=== PATIENT | male | born 1940 | race Caucasian/White ===

== ENCOUNTER 2022-06-14 00:52 | Inpatient (IN) | payer MEDICARE ==
[2022-06-14] VITALS (32 sets, daily range): BP systolic 99–139; BP diastolic 40–86
[~2022-06-14] VITALS: Ht 177.8 cm; Wt 74.2 kg
[~2022-06-14 00:52] MED LIST: ALPR0.25 PO; AMLO5TAB4 PO; ASPI-1197 PO; CLOP75TA14 PO; GLIM2TAB30 PO; LEVO750T21 PO; LISI40TA9 PO; METO100T14 PO; Metformin Hcl PO; SIMV40TA59 PO
[2022-06-14] MEDS ORDERED: NITROGLYCERIN 1GM OINT 1 INCH/1GM TD ONE ×2 (01:10→01:30)
[2022-06-14] MEDS ORDERED: FUROSEMIDE 40MG VIAL ONE (01:10)
[2022-06-14] MEDS ORDERED: ACETAMINOPHEN 650 MG SUPPOSITORY RC ONE ×2 (01:22→01:30)
[2022-06-14 01:24] LABS: ABG BASE EXCESS -3.9 mmol/L (-2.0-3.0); ABG OXYGEN SATURATION 94.6 % (95.0-99.0); ABG PCO2 55 mmHg (35-48)
[2022-06-14 01:29] LABS: BASOPHILS % (AUTO) 0.3 % (0.0-5.0); EOSINOPHILS % (AUTO) 0.8 % (0.0-8.0); HEMATOCRIT 43.1 % (42-54); LYMPHOCYTES % (AUTO) 26.5 % (21.0-51.0); MEAN CORPUSCULAR HEMOGLOBIN 31.9 pg (27.0-33.0); MEAN CORPUSCULAR HGB CONC 32.3 g/dL (32.0-36.0); MEAN CORPUSCULAR VOLUME 98.9 fL (79-99); MONOCYTES % (AUTO) 3.6 % (3.0-13.0); NEUTROPHILS % (AUTO) 68.5 % (40.0-77.0); PLATELET COUNT (AUTO) 242 K/uL (130-400); RED BLOOD CELL COUNT(AUTO) 4.36 MIL/uL (4.50-6.20); RED CELL DISTRIBUTION WIDTH 13.2 % (11.0-15.5); WHITE BLOOD COUNT (AUTO) 21.4 K/uL (4.8-10.8)
[2022-06-14] MEDS ORDERED: FUROSEMIDE 40MG VIAL IV ONE (01:30)
[2022-06-14 01:38] LABS: APPEARANCE,URINE CLEAR (CLEAR); BILIRUBIN,URINE NEGATIVE (NEGATIVE); COLOR,URINE YELLOW (YELLOW); GLUCOSE, URINE (UA) NEGATIVE (NEGATIVE); KETONES,URINE NEGATIVE (NEGATIVE); LEUKOCYTE ESTERASE ,URINE NEGATIVE (NEGATIVE); NITRATE,URINE NEGATIVE (NEGATIVE); PH,URINE 5.5 (5.0-8.0); PROTEIN,URINE 30 mg/dL (NEGATIVE); UROBILINOGEN,URINE 0.2 mg/dL (0.2-1.0)
[2022-06-14] MEDS ORDERED: ZOSYN 3.375GM+NS 50ML 50 ML ONE (01:38)
[2022-06-14 01:39] LABS: OCCULT BLOOD,URINE NEGATIVE (NEGATIVE)
[2022-06-14 01:42] LABS: CREATININE 1.5 mg/dL (0.5-1.5); POTASSIUM 4.1 mmol/L (3.5-5.1)
[2022-06-14] MEDS ORDERED: ONDANSETRON 4MG INJ ONE (01:48)
[2022-06-14 01:50] LABS: ALBUMIN 3.8 g/dL (3.5-5.0); TOTAL PROTEIN, SERUM 8.2 g/dL (6.0-8.3)
[2022-06-14 01:54] LABS: MAGNESIUM 2.8 mg/dL (1.80-2.40)
[2022-06-14] MEDS: ZOSYN 3.375GM +NS 50ML IV SCH ×2 (02:00→02:27)
[2022-06-14] MEDS ORDERED: DEXAMETHASONE SOD PHOSPHATE 4 MG/ML 1ML VIAL IV SCH (03:30)
[2022-06-14] MEDS ORDERED: ACETAMINOPHEN 650 MG SUPPOSITORY RC PRN (04:00)
[2022-06-14] MEDS: 0.9%NACL 1000ML 1,000 ML IV SCH ×2 (04:00→20:01)
[2022-06-14] MEDS ORDERED: ONDANSETRON 4MG INJ IV PRN (04:00)
[2022-06-14] MEDS ORDERED: NITROGLYCERIN 1GM OINT 1 INCH/1GM TD PRN (04:00)
[2022-06-14] MEDS ORDERED: MORPHINE 2 MG SYG IV PRN (04:00)
[2022-06-14] MEDS ORDERED: GUAIFENESIN-CODEINE 5 ML SYRUP PO PRN (04:00)
[2022-06-14] MEDS ORDERED: LORAZEPAM 2 MG/ML 1 ML VIAL IVP PRN (04:00)
[2022-06-14] MEDS ORDERED: HYDROMORPHONE 1 MG INJ IV PRN (04:00)
[2022-06-14] MEDS ORDERED: DEXTROSE 50%-WATER 50 ML DISP.SYRIN IV PRN (04:30)
[2022-06-14] MEDS ORDERED: GLUCAGON 1MG KIT 1 MG ML IM PRN (04:30)
[2022-06-14] MEDS: ZOSYN 3.375GM+NS 50ML 50 ML IV SCH ×3 (05:00→21:09)
[2022-06-14 05:27] LABS: HEMOGLOBIN A1C 8.6 % (4.0-6.0)
[2022-06-14] MEDS ORDERED: SODIUM CHLORIDE 7% INHALATION 4 ML VIAL.NEB IH ONE (06:26)
[2022-06-14] MEDS: IPRATROPIUM/ALBUTEROL SULFATE 3 ML SOLUTION IH SCH ×3 (06:32→18:00)
[2022-06-14] MEDS ORDERED: HYDRALAZINE 20MG/ML VIAL IV PRN (07:00)
[2022-06-14] MEDS ORDERED: KCL 20 MEQ ERTAB PO PRN (07:00)
[2022-06-14] MEDS ORDERED: ONDANSETRON 4MG INJ IVP PRN (07:00)
[2022-06-14] MEDS ORDERED: CLONIDINE HCL 0.1 MG TABLET PO PRN (07:00)
[2022-06-14] MEDS ORDERED: TEMAZEPAM 15 MG CAPSULE PO PRN (07:00)
[2022-06-14] MEDS ORDERED: MAGNESIUM 2GM PREMIX 50ML 50 ML IV PRN (07:00)
[2022-06-14] MEDS ORDERED: DOCUSATE SODIUM 100 MG CAP PO PRN (07:00)
[2022-06-14] MEDS ORDERED: POTASSIUM CHLORIDE 10MEQ/100ML 100 ML IV PRN (07:00)
[2022-06-14] MEDS ORDERED: LACTULOSE 20 GM/30 ML UDCUP PO PRN (07:00)
[2022-06-14] MEDS: HEPARIN 5,000 UNIT VIAL SQ SCH ×3 (09:43→21:10)
[2022-06-14] MEDS: DOXYCYCLINE 100MG+NS 250ML IV SCH ×2 (09:43→20:11)
[2022-06-14] MEDS: FAMOTIDINE 20MG VIAL IV SCH (09:43)
[2022-06-14] MEDS: ALBUTEROL 0.042% 1.25MG/3ML IH SCH ×2 (18:25→23:25)
[2022-06-14] MEDS: ACETYLCYSTEINE 10% 100MG/ML 4ML VIAL IH SCH ×2 (18:25→23:25)
[2022-06-14] MEDS: FUROSEMIDE 40MG VIAL IV SCH (20:11)
[2022-06-15] VITALS (35 sets, daily range): BP systolic 102–167; BP diastolic 34–79
[2022-06-15 04:03] LABS: BASOPHILS % (AUTO) 0.3 % (0.0-5.0); HEMATOCRIT 33.4 % (42-54); LYMPHOCYTES % (AUTO) 8.2 % (21.0-51.0); MEAN CORPUSCULAR HEMOGLOBIN 32.6 pg (27.0-33.0); MEAN CORPUSCULAR HGB CONC 33.2 g/dL (32.0-36.0); MEAN CORPUSCULAR VOLUME 97.9 fL (79-99); MONOCYTES % (AUTO) 4.8 % (3.0-13.0); PLATELET COUNT (AUTO) 179 K/uL (130-400); RED BLOOD CELL COUNT(AUTO) 3.41 MIL/uL (4.50-6.20); RED CELL DISTRIBUTION WIDTH 13.4 % (11.0-15.5); WHITE BLOOD COUNT (AUTO) 20.7 K/uL (4.8-10.8)
[2022-06-15] MEDS: ZOSYN 3.375GM+NS 50ML 50 ML IV SCH ×3 (04:15→22:36)
[2022-06-15 04:35] LABS: CREATININE 1.7 mg/dL (0.5-1.5); MAGNESIUM 2.8 mg/dL (1.80-2.40); PHOSPHORUS 2.9 mg/dL (2.5-4.9); POTASSIUM 3.7 mmol/L (3.5-5.1); TOTAL PROTEIN, SERUM 6.8 g/dL (6.0-8.3)
[2022-06-15] MEDS: INSULIN HUMULIN R 100 UNIT/ML 3ML SQ SCH ×3 (06:00→17:27)
[2022-06-15] MEDS: ALBUTEROL 0.042% 1.25MG/3ML IH SCH ×3 (06:32→18:00)
[2022-06-15] MEDS: ACETYLCYSTEINE 10% 100MG/ML 4ML VIAL IH SCH ×4 (06:32→23:22)
[2022-06-15 07:29] LABS: ABG BASE EXCESS 0.1 mmol/L (-2.0-3.0); ABG HCO3 25.7 mmol/L (21.0-28.0); ABG OXYGEN SATURATION 95.9 % (95.0-99.0); ABG PCO2 45 mmHg (35-48)
[2022-06-15] MEDS: FUROSEMIDE 40MG VIAL IV SCH (08:31)
[2022-06-15] MEDS: FAMOTIDINE 20MG VIAL IV SCH (08:31)
[2022-06-15] MEDS: HEPARIN 5,000 UNIT VIAL SQ SCH ×3 (08:31→20:42)
[2022-06-15] MEDS: DOXYCYCLINE 100MG+NS 250ML IV SCH ×2 (08:31→20:41)
[2022-06-15] MEDS ORDERED: INSU300I SQ (09:56)
[2022-06-15] MEDS ORDERED: TEMA15CA PO (09:56)
[2022-06-15] MEDS ORDERED: HYDR25TA PO (09:56)
[2022-06-15] MEDS ORDERED: ATOR20TA65 PO (09:56)
[2022-06-15] MEDS ORDERED: SERT-439 PO (09:56)
[2022-06-15] MEDS ORDERED: AMLO-257 PO (09:56)
[2022-06-15] MEDS: IPRATROPIUM/ALBUTEROL SULFATE 3 ML SOLUTION IH SCH ×3 (18:24→23:22)
[2022-06-15] MEDS: ZOSYN 3.375GM +NS 50ML IV SCH (19:34)
[2022-06-15] MEDS ORDERED: 0.9%NACL 50ML 50 ML IV ONE (20:38)
[2022-06-15] MEDS ORDERED: 0.9% NACL 250ML 250 ML ONE ×2 (20:39→23:35)
[2022-06-15] MEDS ORDERED: VANCOMYCIN PROTOCOL PER PHARMACY IV SCH (23:30)
[2022-06-15] MEDS ORDERED: VANCOMYCIN KIT 1 GM/250 ML IV.KIT IV ONE (23:45)
[2022-06-15] MEDS: MEROPENEM 1 GM VIAL IVP SCH (23:53)
[2022-06-16] VITALS (7 sets, daily range): BP systolic 132–172; BP diastolic 66–99
[2022-06-16 03:38] LABS: BASOPHILS % (AUTO) 0.2 % (0.0-5.0); EOSINOPHILS % (AUTO) 0.4 % (0.0-8.0); HEMATOCRIT 31.4 % (42-54); LYMPHOCYTES % (AUTO) 6.3 % (21.0-51.0); MEAN CORPUSCULAR HEMOGLOBIN 32.5 pg (27.0-33.0); MEAN CORPUSCULAR HGB CONC 33.4 g/dL (32.0-36.0); MEAN CORPUSCULAR VOLUME 97.2 fL (79-99); MONOCYTES % (AUTO) 4.4 % (3.0-13.0); NEUTROPHILS % (AUTO) 86.9 % (40.0-77.0); PLATELET COUNT (AUTO) 168 K/uL (130-400); RED BLOOD CELL COUNT(AUTO) 3.23 MIL/uL (4.50-6.20); RED CELL DISTRIBUTION WIDTH 13.4 % (11.0-15.5); WHITE BLOOD COUNT (AUTO) 18.7 K/uL (4.8-10.8)
[2022-06-16 03:52] LABS: ALBUMIN 2.6 g/dL (3.5-5.0); CREATININE 1.2 mg/dL (0.5-1.5); MAGNESIUM 2.4 mg/dL (1.80-2.40); PHOSPHORUS 1.9 mg/dL (2.5-4.9); POTASSIUM 3.4 mmol/L (3.5-5.1); TOTAL PROTEIN, SERUM 6.6 g/dL (6.0-8.3)
[2022-06-16] MEDS ORDERED: FUROSEMIDE 20MG VIAL IV SCH (04:45)
[2022-06-16] MEDS ORDERED: ALPRAZOLAM 0.25 MG TABLET PEG PRN (05:00)
[2022-06-16] MEDS: POTASSIUM CHLORIDE 10% ELIXIR 20 MEQ/15 ML UDCUP PO PRN ×3 (05:02→16:02)
[2022-06-16] MEDS: INSULIN HUMULIN R 100 UNIT/ML 3ML SQ SCH ×4 (06:00→18:39)
[2022-06-16] MEDS: ALBUTEROL 0.042% 1.25MG/3ML IH SCH ×3 (07:08→18:50)
[2022-06-16] MEDS: ACETYLCYSTEINE 10% 100MG/ML 4ML VIAL IH SCH ×2 (07:08→11:40)
[2022-06-16] MEDS ORDERED: VANCOMYCIN 1.25 GM/250 ML BAG 250 ML IV SCH (09:00)
[2022-06-16] MEDS: FAMOTIDINE 20MG VIAL IV SCH (09:17)
[2022-06-16] MEDS: HEPARIN 5,000 UNIT VIAL SQ SCH ×3 (09:18→21:38)
[2022-06-16] MEDS: MEROPENEM 1 GM VIAL IVP SCH (12:05)
[2022-06-16] MEDS ORDERED: METOPROLOL TARTRATE 1 MG/ML 5ML VIAL IV PRN (16:30)
[2022-06-16] MEDS ORDERED: POTASSIUM PHOS 15 mMOL+NS250ML 250 ML IV PRN (16:30)
[2022-06-16] MEDS: FUROSEMIDE 20MG VIAL IV SCH (17:01)
[2022-06-16] MEDS: SOLU-MEDROL 40MG VIAL IVP SCH (17:01)
[2022-06-16] MEDS: GUAIFENESIN 600 MG TABLET.ER PO SCH (21:39)
[2022-06-16] MEDS: METOPROLOL TARTRATE 50 MG TAB PO SCH (21:39)
[2022-06-17] MEDS ORDERED: 0.9%NACL 10ML VIAL ONE (00:24)
[2022-06-17] MEDS: INSULIN HUMULIN R 100 UNIT/ML 3ML SQ SCH ×4 (00:27→19:48)
[2022-06-17] MEDS: MEROPENEM 1 GM VIAL IVP SCH ×2 (00:28→11:47)
[2022-06-17] MEDS: SOLU-MEDROL 40MG VIAL IVP SCH ×3 (00:28→16:47)
[2022-06-17] MEDS: ALBUTEROL 0.042% 1.25MG/3ML IH SCH ×4 (00:38→18:56)
[2022-06-17 04:52] LABS: BASOPHILS % (AUTO) 0.2 % (0.0-5.0); HEMATOCRIT 32.6 % (42-54); LYMPHOCYTES % (AUTO) 4.9 % (21.0-51.0); MEAN CORPUSCULAR HEMOGLOBIN 31.7 pg (27.0-33.0); MEAN CORPUSCULAR HGB CONC 32.2 g/dL (32.0-36.0); MEAN CORPUSCULAR VOLUME 98.5 fL (79-99); MONOCYTES % (AUTO) 2.8 % (3.0-13.0); NEUTROPHILS % (AUTO) 91.2 % (40.0-77.0); PLATELET COUNT (AUTO) 176 K/uL (130-400); RED BLOOD CELL COUNT(AUTO) 3.31 MIL/uL (4.50-6.20); RED CELL DISTRIBUTION WIDTH 13.7 % (11.0-15.5); WHITE BLOOD COUNT (AUTO) 16.2 K/uL (4.8-10.8)
[2022-06-17] MEDS: FUROSEMIDE 20MG VIAL IV SCH ×2 (04:59→16:55)
[2022-06-17 05:19] LABS: ALBUMIN 2.6 g/dL (3.5-5.0); CREATININE 1.2 mg/dL (0.5-1.5); MAGNESIUM 2.6 mg/dL (1.80-2.40); PHOSPHORUS 2.1 mg/dL (2.5-4.9); POTASSIUM 4.3 mmol/L (3.5-5.1); TOTAL PROTEIN, SERUM 7.1 g/dL (6.0-8.3)
[2022-06-17 07:00] VITALS: BP 137/52
[2022-06-17] MEDS: METOPROLOL TARTRATE 50 MG TAB PO SCH (08:31)
[2022-06-17] MEDS: FAMOTIDINE 20MG VIAL IV SCH (08:31)
[2022-06-17] MEDS: GUAIFENESIN 600 MG TABLET.ER PO SCH (08:31)
[2022-06-17] MEDS: HEPARIN 5,000 UNIT VIAL SQ SCH ×2 (08:32→14:02)
[2022-06-17 11:00] VITALS: BP 158/71
[2022-06-17 16:00] VITALS: BP 151/84
[2022-06-17] MEDS ORDERED: INSULIN HUMULIN R 100 UNIT/ML 3ML SQ ONE (20:00)
[2022-06-17 20:47] VITALS: BP 156/88
[2022-06-18 05:00] VITALS: BP 150/22
== END 2022-06-17 20:45 | DRG 871 ==
LOC: EDH 00:52 → EDHIP 03:15 → 2CH 06:24 → 2AH 06-15 18:19 → 2DH 06-16 11:04
PROVIDERS: ADMIT Hospitalist; ATTEND Hospitalist
PROC: 5A09357 Assistance with Respiratory Ventilation, Less than 24 Consecutive Hours, Continuous Positive Airway Pressure (ICD-10-PCS; principal; 2022-06-14)
PROC: 5A09357 Assistance with Respiratory Ventilation, Less than 24 Consecutive Hours, Continuous Positive Airway Pressure (ICD-10-PCS; 2022-06-15)
DX: A41.9 Sepsis, unspecified organism (principal); J69.0 Pneumonitis due to inhalation of food and vomit; J96.01 Acute respiratory failure with hypoxia; R65.21 Severe sepsis with septic shock; E87.2 Acidosis; E46 Unspecified protein-calorie malnutrition; Z20.822 Contact with and (suspected) exposure to COVID-19; E11.65 Type 2 diabetes mellitus with hyperglycemia; I16.0 Hypertensive urgency; I25.10 Atherosclerotic heart disease of native coronary artery without angina pectoris; I50.9 Heart failure, unspecified; I11.0 Hypertensive heart disease with heart failure; Z66 Do not resuscitate; E78.00 Pure hypercholesterolemia, unspecified; Z95.1 Presence of aortocoronary bypass graft; Z91.19 Patient's noncompliance with other medical treatment and regimen; Z86.73 Personal history of transient ischemic attack (TIA), and cerebral infarction without residual deficits; Z86.12 Personal history of poliomyelitis; Z85.51 Personal history of malignant neoplasm of bladder; Z83.3 Family history of diabetes mellitus; Z82.49 Family history of ischemic heart disease and other diseases of the circulatory system; Z82.3 Family history of stroke; Z80.52 Family history of malignant neoplasm of bladder; Z68.23 Body mass index [BMI] 23.0-23.9, adult
CPT/HCPCS: 36415; 36600; 71045; 71250; 74021; 74176; 80053; 81003; 82010; 82550; 82803; 82948; 83036; 83605; 83735; 83880; 84100; 84145; 84484; 85025; 85378; 87040; 87071; 87077; 87186; 87205; 87635; 87804; 93005; 93970; 94640; 94660; 94664; 94667; 94668; 97039; 99291; C9803; G0378; J1100; J1644; J1815; J1940; J2185; J2405; J2543; J2920; J3370; J3490; J7030; J7050; J7608

== ENCOUNTER 2022-07-08 16:38 | Inpatient (IN) | payer MEDICARE ==
[~2022-07-08] VITALS: Ht 180.3 cm; Wt 70.4 kg
[~2022-07-08 16:38] MED LIST changes: -ALPR0.25 PO; +AMLO-257 PO; -AMLO5TAB4 PO; -ASPI-1197 PO; +ATOR20TA65 PEG; +CLOP75TA14 PEG; -CLOP75TA14 PO; +HYDR25TA PO; +INSU300I SQ; -LEVO750T21 PO; -Metformin Hcl PO; +SERT-439 PO; -SIMV40TA59 PO
[2022-07-08 20:00] VITALS: BP 123/53
[2022-07-08] MEDS ORDERED: LACTULOSE 20 GM/30 ML UDCUP PO PRN (21:00)
[2022-07-08] MEDS ORDERED: ONDANSETRON 4MG INJ IV PRN (21:00)
[2022-07-08] MEDS ORDERED: ACETAMINOPHEN 325 MG TAB PO PRN ×2 (21:00)
[2022-07-08] MEDS ORDERED: DEXTROSE 50%-WATER 50 ML DISP.SYRIN IV PRN (21:00)
[2022-07-08] MEDS ORDERED: GLUCAGON 1MG KIT 1 MG ML IM PRN (21:00)
[2022-07-08 21:08] LABS: BASOPHILS % (AUTO) 0.2 % (0.0-5.0); EOSINOPHILS % (AUTO) 0.3 % (0.0-8.0); HEMATOCRIT 25.1 % (42-54); LYMPHOCYTES % (AUTO) 9.9 % (21.0-51.0); MEAN CORPUSCULAR HGB CONC 33.5 g/dL (32.0-36.0); MEAN CORPUSCULAR VOLUME 92.6 fL (79-99); MONOCYTES % (AUTO) 5.8 % (3.0-13.0); NEUTROPHILS % (AUTO) 83.4 % (40.0-77.0); PLATELET COUNT (AUTO) 210 K/uL (130-400); RED BLOOD CELL COUNT(AUTO) 2.71 MIL/uL (4.50-6.20); RED CELL DISTRIBUTION WIDTH 14.3 % (11.0-15.5); WHITE BLOOD COUNT (AUTO) 14.6 K/uL (4.8-10.8)
[2022-07-08 21:20] LABS: INR 1.04 (0.85-1.15); PROTHROMBIN TIME 11.3 SEC (9.6-11.6)
[2022-07-08 21:22] LABS: ALBUMIN 1.7 g/dL (3.5-5.0); CREATININE 0.9 mg/dL (0.5-1.5); PARTIAL THROMBOPLASTIN TIME 27.1 SEC (26.3-35.5); POTASSIUM 4.3 mmol/L (3.5-5.1); TOTAL PROTEIN, SERUM 5.8 g/dL (6.0-8.3)
[2022-07-09] VITALS (10 sets, daily range): BP systolic 71–131; BP diastolic 38–67
[2022-07-09] MEDS ORDERED: PANT40VI IV (00:20)
[2022-07-09] MEDS ORDERED: INSU100C6 SQ (00:20)
[2022-07-09] MEDS ORDERED: INSLAN SQ (00:20)
[2022-07-09] MEDS ORDERED: IPRA0.2S54 IH (00:22)
[2022-07-09] MEDS ORDERED: ALBU2.5V2 IH (00:24)
[2022-07-09] MEDS: IPRATROPIUM/ALBUTEROL SULFATE 3 ML SOLUTION IH PRN ×4 (00:51→22:01)
[2022-07-09] MEDS ORDERED: GUAI5LIQ13 PO (01:48)
[2022-07-09] MEDS ORDERED: DOCUSATE SODIUM PEG (01:48)
[2022-07-09] MEDS ORDERED: LACT10SO9 PO (01:48)
[2022-07-09] MEDS ORDERED: ALPR0.255 PO (01:48)
[2022-07-09] MEDS ORDERED: CLON0.1T PEG (01:48)
[2022-07-09] MEDS ORDERED: METO50TA18 PEG (01:50)
[2022-07-09] MEDS ORDERED: SERT-439 PEG (01:53)
[2022-07-09] MEDS ORDERED: 0.9% NACL 250ML 250 ML ONE (01:54)
[2022-07-09] MEDS ORDERED: CEFTRIAXONE 1G VIAL IVP SCH (02:00)
[2022-07-09] MEDS ORDERED: AZITHROMYCIN 500MG+NS 250ML IVPB SCH (02:00)
[2022-07-09] MEDS ORDERED: GUAI-899 PO (02:26)
[2022-07-09] MEDS ORDERED: ALPRAZOLAM 0.25 MG TABLET PO PRN (03:00)
[2022-07-09] MEDS ORDERED: CLONIDINE HCL 0.1 MG TABLET PEG PRN (03:00)
[2022-07-09] MEDS: INSULIN HUMULIN R 100 UNIT/ML 3ML SQ SCH ×4 (05:56→18:00)
[2022-07-09 08:01] LABS: HEMATOCRIT 25.4 % (42-54); MEAN CORPUSCULAR HEMOGLOBIN 31.3 pg (27.0-33.0); MEAN CORPUSCULAR HGB CONC 33.1 g/dL (32.0-36.0); MEAN CORPUSCULAR VOLUME 94.8 fL (79-99); RED BLOOD CELL COUNT(AUTO) 2.68 MIL/uL (4.50-6.20); RED CELL DISTRIBUTION WIDTH 14.4 % (11.0-15.5); WHITE BLOOD COUNT (AUTO) 13.5 K/uL (4.8-10.8)
[2022-07-09 08:06] LABS: POTASSIUM 4.8 mmol/L (3.5-5.1)
[2022-07-09] MEDS ORDERED: PANTOPRAZOLE 40 MG/VIAL IVP SCH ×2 (09:00)
[2022-07-09] MEDS: SERTRALINE HCL 50 MG TABLET PEG SCH (09:35)
[2022-07-09] MEDS: HYDROCHLOROTHIAZIDE 25 MG TABLET PO SCH (09:35)
[2022-07-09] MEDS: METOPROLOL TARTRATE 50 MG TAB PEG SCH ×2 (09:35→21:00)
[2022-07-09] MEDS: AMLODIPINE 5 MG TAB PO SCH (09:35)
[2022-07-09 14:09] LABS: HEMATOCRIT 24.1 % (42-54)
[2022-07-09] MEDS: MEROPENEM 1 GM VIAL IVP SCH (14:26)
[2022-07-09] MEDS ORDERED: PEG 3350/NA SULF,BICARB,CL/KCL 4000 ML SOLN PO SCH (15:30)
[2022-07-09 15:55] LABS: HEMATOCRIT 22.4 % (42-54)
[2022-07-09] MEDS ORDERED: OCTREOTIDE ACETATE 1,250 MCG in 0.9% NACL 250ML 250 ML IV SCH (19:30)
[2022-07-09] MEDS ORDERED: SODIUM CHLORIDE FOR INHALATION 3 ML VIAL.NEB. IH SCH (20:30)
[2022-07-09] MEDS: PANTOPRAZOLE 40MG INJ 80 MG in 0.9%NACL 100ML 100 ML IVP SCH (21:06)
[2022-07-09] MEDS ORDERED: 0.9% NACL 250ML IV SCH (22:00)
[2022-07-09] MEDS: ATORVASTATIN 20 MG TABLET PEG SCH (22:21)
[2022-07-09 23:14] LABS: HEMATOCRIT 25.6 % (42-54)
[2022-07-09] MEDS: IPRATROPIUM/ALBUTEROL SULFATE 3 ML SOLUTION IH SCH (23:16)
[2022-07-10] VITALS (24 sets, daily range): BP systolic 85–128; BP diastolic 41–63
[2022-07-10] MEDS ORDERED: IPRATROPIUM 0.5 MG/2.5 ML INH IH SCH
[2022-07-10] MEDS ORDERED: 0.9%NACL 10ML VIAL ONE (02:56)
[2022-07-10] MEDS: MEROPENEM 1 GM VIAL IVP SCH ×2 (02:57→15:00)
[2022-07-10 03:43] LABS: HEMATOCRIT 24.7 % (42-54); MEAN CORPUSCULAR HEMOGLOBIN 31.2 pg (27.0-33.0); MEAN CORPUSCULAR VOLUME 91.8 fL (79-99); RED BLOOD CELL COUNT(AUTO) 2.69 MIL/uL (4.50-6.20); RED CELL DISTRIBUTION WIDTH 14.6 % (11.0-15.5); WHITE BLOOD COUNT (AUTO) 16.2 K/uL (4.8-10.8)
[2022-07-10 03:53] LABS: CREATININE 1.8 mg/dL (0.5-1.5); POTASSIUM 4.5 mmol/L (3.5-5.1)
[2022-07-10] MEDS: INSULIN HUMULIN R 100 UNIT/ML 3ML SQ SCH ×5 (06:00→23:52)
[2022-07-10] MEDS: IPRATROPIUM/ALBUTEROL SULFATE 3 ML SOLUTION IH SCH ×3 (06:45→23:57)
[2022-07-10] MEDS: PANTOPRAZOLE 40MG INJ 80 MG in 0.9%NACL 100ML 100 ML IVP SCH ×2 (06:51→22:52)
[2022-07-10] MEDS: HYDROCHLOROTHIAZIDE 25 MG TABLET PO SCH (08:37)
[2022-07-10] MEDS: METOPROLOL TARTRATE 50 MG TAB PEG SCH ×2 (08:37→20:41)
[2022-07-10] MEDS: SERTRALINE HCL 50 MG TABLET PEG SCH (08:37)
[2022-07-10] MEDS: AMLODIPINE 5 MG TAB PO SCH (08:38)
[2022-07-10 09:17] LABS: HEMATOCRIT 26.5 % (42-54)
[2022-07-10] MEDS ORDERED: PROPOFOL 10 MG/ML 20ML VIAL IV ONE (11:16)
[2022-07-10] MEDS ORDERED: LIDOCAINE HCL 1% 20 ML VIAL ONE (11:17)
[2022-07-10] MEDS ORDERED: GLYCOPYRROLATE 0.2 MG/ML 5 ML VIAL ONE (11:19)
[2022-07-10] MEDS ORDERED: KETAMINE HCL 100 MG/ML 5ML VIAL IJ ONE (11:20)
[2022-07-10 13:10] LABS: HEMATOCRIT 24.5 % (42-54)
[2022-07-10] MEDS: ATORVASTATIN 20 MG TABLET PEG SCH (20:41)
[2022-07-10 20:53] LABS: HEMATOCRIT 24.1 % (42-54)
[2022-07-10] MEDS ORDERED: SODIUM CHLORIDE 3% FOR INHALATION 4 ML/AMP VIAL.NEB IH SCH (21:00)
[2022-07-10] MEDS ORDERED: IPRATROPIUM/ALBUTEROL SULFATE 3 ML SOLUTION IH SCH (22:00)
[2022-07-11] VITALS: BP 123/55
[2022-07-11] MEDS: MEROPENEM 1 GM VIAL IVP SCH (01:56)
[2022-07-11 03:00] VITALS: BP 142/65
[2022-07-11 03:40] LABS: HEMATOCRIT 22.8 % (42-54); MEAN CORPUSCULAR HEMOGLOBIN 31.8 pg (27.0-33.0); MEAN CORPUSCULAR HGB CONC 34.2 g/dL (32.0-36.0); MEAN CORPUSCULAR VOLUME 93.1 fL (79-99); RED BLOOD CELL COUNT(AUTO) 2.45 MIL/uL (4.50-6.20); RED CELL DISTRIBUTION WIDTH 14.7 % (11.0-15.5); WHITE BLOOD COUNT (AUTO) 9.1 K/uL (4.8-10.8)
[2022-07-11 03:50] LABS: ALBUMIN 1.7 g/dL (3.5-5.0); CREATININE 1.8 mg/dL (0.5-1.5); CRP QUANTITATIVE 57.7 mg/L (0.00-9.0); MAGNESIUM 2.3 mg/dL (1.80-2.40); POTASSIUM 3.8 mmol/L (3.5-5.1)
[2022-07-11] MEDS: INSULIN HUMULIN R 100 UNIT/ML 3ML SQ SCH ×2 (05:59→11:44)
[2022-07-11] MEDS: IPRATROPIUM/ALBUTEROL SULFATE 3 ML SOLUTION IH SCH ×2 (06:29→11:04)
[2022-07-11 08:00] VITALS: BP 116/48
[2022-07-11 08:40] LABS: HEMATOCRIT 24.9 % (42-54)
[2022-07-11 08:55] LABS: INR 1.07 (0.85-1.15); PROTHROMBIN TIME 11.6 SEC (9.6-11.6)
[2022-07-11 08:56] LABS: PARTIAL THROMBOPLASTIN TIME 25.8 SEC (26.3-35.5)
[2022-07-11] MEDS: AMLODIPINE 5 MG TAB PO SCH (09:45)
[2022-07-11] MEDS: SERTRALINE HCL 50 MG TABLET PEG SCH (09:45)
[2022-07-11] MEDS: METOPROLOL TARTRATE 50 MG TAB PEG SCH (09:45)
[2022-07-11 12:00] VITALS: BP 130/66
[2022-07-11] MEDS ORDERED: GUAIFENESIN-DM 200/20 MG 10 ML PEG PRN (12:00)
[2022-07-11] MEDS ORDERED: LEVOFLOXACIN 500 MG/D5W 100 ML 100 ML IV SCH (13:30)
[2022-07-12] MEDS ORDERED: PANTOPRAZOLE 40 MG/VIAL IVP SCH (09:00)
== END 2022-07-11 14:41 | DRG 871 ==
LOC: 3AH 20:41 → 2DH 07-09 19:58
PROVIDERS: ADMIT Hospitalist; ATTEND Hospitalist
PROC: 30233N1 Transfusion of Nonautologous Red Blood Cells into Peripheral Vein, Percutaneous Approach (ICD-10-PCS; principal; 2022-07-09)
PROC: 5A09357 Assistance with Respiratory Ventilation, Less than 24 Consecutive Hours, Continuous Positive Airway Pressure (ICD-10-PCS; 2022-07-09)
PROC: 0W3P8ZZ Control Bleeding in Gastrointestinal Tract, Via Natural or Artificial Opening Endoscopic (ICD-10-PCS; 2022-07-10)
DX: A41.9 Sepsis, unspecified organism (principal); E43 Unspecified severe protein-calorie malnutrition; J96.01 Acute respiratory failure with hypoxia; J15.6 Pneumonia due to other Gram-negative bacteria; K57.31 Diverticulosis of large intestine without perforation or abscess with bleeding; D62 Acute posthemorrhagic anemia; J84.9 Interstitial pulmonary disease, unspecified; Z16.24 Resistance to multiple antibiotics; K62.6 Ulcer of anus and rectum; Z20.822 Contact with and (suspected) exposure to COVID-19; E11.621 Type 2 diabetes mellitus with foot ulcer; E11.65 Type 2 diabetes mellitus with hyperglycemia; R13.12 Dysphagia, oropharyngeal phase; L97.519 Non-pressure chronic ulcer of other part of right foot with unspecified severity; E78.5 Hyperlipidemia, unspecified; I10 Essential (primary) hypertension; I25.10 Atherosclerotic heart disease of native coronary artery without angina pectoris; Z95.1 Presence of aortocoronary bypass graft; Z91.19 Patient's noncompliance with other medical treatment and regimen; Z86.73 Personal history of transient ischemic attack (TIA), and cerebral infarction without residual deficits; Z86.12 Personal history of poliomyelitis; Z85.51 Personal history of malignant neoplasm of bladder; Z83.3 Family history of diabetes mellitus; Z82.49 Family history of ischemic heart disease and other diseases of the circulatory system; Z82.3 Family history of stroke; Z80.52 Family history of malignant neoplasm of bladder; Z79.02 Long term (current) use of antithrombotics/antiplatelets; Z68.21 Body mass index [BMI] 21.0-21.9, adult
CPT/HCPCS: 36415; 36430; 71045; 80048; 80053; 82040; 82948; 83540; 83550; 83605; 83735; 83880; 84145; 85014; 85018; 85025; 85027; 85610; 85651; 85730; 86140; 86850; 86900; 86901; 86923; 87040; 87071; 87077; 87186; 87205; 87635; 94640; 94660; 94664; 94667; 94668; A4606; C9113; G0378; J0456; J0696; J2185; J2354; J2704; J3490; J7050; J7070; P9016